=== PATIENT | female | born 1995 | race Caucasian/White ===

== ENCOUNTER 2020-12-18 19:14 | Inpatient (IN) | payer OTHER ==
[~2020-12-18] VITALS: Ht 167.6 cm; Wt 154.8 kg
[~2020-12-18 19:14] MED LIST: ACETAMINOPHEN500 M1 PO; COUMADIN10 MG PO; COUMADIN7.5 MG PO; GABAPENTIN300 MG PO; GABAPENTIN600 MG PO; MEDROL 4MG DOSEP4 MG PO; NORCO 5-325 TA1 EAC1 PO; NORCO 5-325 TA1 EACH PO; NORCO 5/3251 EACH PO; PAROXETINE 20MG20 MG PO; PREDNISONE 20MG20 MG PO
[2020-12-18 20:17] LABS: BILIRUBIN NEGATIVE (NEGATIVE); BLOOD NEGATIVE Ery/uL (NEGATIVE); CLARITY CLEAR (CLEAR); COLOR YELLOW (YELLOW); GLUCOSE (U) NORMAL (NORMAL); LEUKOCYTES NEGATIVE Leu/uL (NEGATIVE); NITRITE NEGATIVE (NEGATIVE); PROTEIN NEGATIVE (NEGATIVE); SPECIFIC GRAVITY >=1.030 (1.001-1.030); UROBILINOGEN 0.2 mg/dL (0.2-1.0)
[2020-12-18 20:40] LABS: BASOPHIL 0.4 % (0-2); EOSINOPHIL 1.9 % (0-5); HCT 46.7 % (37.0-47.0); HGB 15.2 g/dl (12.5-16.0); LYMPHOCYTE 15.2 % (15-48); MCH 28.6 pg (25.0-31.0); MCHC 32.5 g/dL (32.0-36.0); MCV 87.9 fL (78.0-100.0); MONOCYTE 4.3 % (0-12); MPV 9.1 fL (6.0-9.5); NEUTROPHIL 77.9 % (41-80); NRBC 0; PLT 371 K/uL (150-400); RBC 5.31 M/uL (4.20-5.40); WBC 16.6 K/uL (4.0-10.5)
[2020-12-18 20:51] LABS: INR 1.71 (0.9-1.2); PROTHROMBIN TIME 19.3 SECONDS (11.8-13.4)
[2020-12-18 20:59] LABS: ALBUMIN 3.8 g/dL (3.4-5.0); BILIRUBIN - TOTAL 0.4 mg/dL (0.2-1.0); BUN/CREAT RATIO (CALC) 14.8 RATIO; CREATININE 0.81 mg/dL (0.51-0.95); GLOBULIN (CALCULATION) 4.6 g/dL; POTASSIUM 4.5 mmol/L (3.5-5.1); TOTAL PROTEIN 8.4 g/dL (6.4-8.2)
[2020-12-18 22:19] LABS: LACTIC ACID 1.1 mmol/L (0.4-1.9)
[2020-12-19] MEDS ORDERED: WARFARIN SODIUM5 MG PO (01:07)
[2020-12-19] MEDS ORDERED: CYMBALTA 30MG C30 MG PO (01:07)
[2020-12-19 05:58] LABS: BASOPHIL 0.5 % (0-2); HCT 40.5 % (37.0-47.0); HGB 13.1 g/dl (12.5-16.0); LYMPHOCYTE 30.6 % (15-48); MCH 28.4 pg (25.0-31.0); MCHC 32.3 g/dL (32.0-36.0); MCV 87.9 fL (78.0-100.0); MONOCYTE 5.9 % (0-12); MPV 9.2 fL (6.0-9.5); NEUTROPHIL 59.7 % (41-80); NRBC 0; PLT 300 K/uL (150-400); RBC 4.61 M/uL (4.20-5.40); RDW 13.1 % (11.5-14.0); WBC 10.1 K/uL (4.0-10.5)
[2020-12-19 06:06] LABS: INR 1.85 (0.9-1.2); PROTHROMBIN TIME 20.5 SECONDS (11.8-13.4)
[2020-12-19 06:16] LABS: ALBUMIN 3.1 g/dL (3.4-5.0); BILIRUBIN - TOTAL 0.5 mg/dL (0.2-1.0); BUN/CREAT RATIO (CALC) 11.8 RATIO; CREATININE 0.85 mg/dL (0.51-0.95); POTASSIUM 3.8 mmol/L (3.5-5.1); TOTAL PROTEIN 7.1 g/dL (6.4-8.2)
--- NOTE | 2020-12-19 08:00 | NUR ---
NOTIFIED OF INR THIS AM. WILL NOTIFY MD RAO WELL PRIOR TO SURGERY
[2020-12-19 09:19] LABS: INR 2.03 (0.9-1.2); PROTHROMBIN TIME 22.1 SECONDS (11.8-13.4)
[2020-12-19 18:35] LABS: INR 1.93 (0.9-1.2); PROTHROMBIN TIME 21.2 SECONDS (11.8-13.4)
[2020-12-20 07:35] LABS: BASOPHIL 0.4 % (0-2); EOSINOPHIL 5.1 % (0-5); HCT 38.1 % (37.0-47.0); HGB 12.2 g/dl (12.5-16.0); LYMPHOCYTE 38.2 % (15-48); MCH 28.6 pg (25.0-31.0); MCV 89.4 fL (78.0-100.0); MONOCYTE 5.9 % (0-12); MPV 9.2 fL (6.0-9.5); NEUTROPHIL 50.3 % (41-80); NRBC 0; PLT 279 K/uL (150-400); RBC 4.26 M/uL (4.20-5.40); RDW 13.1 % (11.5-14.0); WBC 6.7 K/uL (4.0-10.5)
[2020-12-20 07:38] LABS: INR 1.7 (0.9-1.2); PROTHROMBIN TIME 19.2 SECONDS (11.8-13.4)
[2020-12-20 07:53] LABS: BUN/CREAT RATIO (CALC) 7.2 RATIO; CREATININE 0.83 mg/dL (0.51-0.95)
[2020-12-20 13:05] LABS: HCG (URINE) SCREEN NEGATIVE (NEGATIVE)
[2020-12-21 09:51] LABS: BASOPHIL 0.2 % (0-2); EOSINOPHIL 0.1 % (0-5); HCT 39.1 % (37.0-47.0); HGB 12.6 g/dl (12.5-16.0); LYMPHOCYTE 19.9 % (15-48); MCH 28.7 pg (25.0-31.0); MCHC 32.2 g/dL (32.0-36.0); MCV 89.1 fL (78.0-100.0); MONOCYTE 5.3 % (0-12); MPV 9.7 fL (6.0-9.5); NEUTROPHIL 74.2 % (41-80); NRBC 0; PLT 312 K/uL (150-400); RBC 4.39 M/uL (4.20-5.40); RDW 12.7 % (11.5-14.0); WBC 10.3 K/uL (4.0-10.5)
[2020-12-21 10:11] LABS: INR 1.36 (0.9-1.2); PROTHROMBIN TIME 16.1 SECONDS (11.8-13.4)
[2020-12-21 10:16] LABS: BUN/CREAT RATIO (CALC) 6.2 RATIO; CREATININE 0.8 mg/dL (0.51-0.95); POTASSIUM 3.8 mmol/L (3.5-5.1)
[2020-12-21] MEDS ORDERED: LOVENOX150 MG/1 M SC (14:17)
[2020-12-21] MEDS ORDERED: AUGMENTIN 875-1 EACH PO (14:17)
[2020-12-21] MEDS ORDERED: PERCOCET 5-3251 EACH PO (14:45)
== END 2020-12-21 16:14 | disposition home or self-care (01) | DRG 853 ==
LOC: FER 19:14 → FMS 23:20
PROVIDERS: Allergy & Immunology Allergy; Anesthesiology; Emergency Medicine; Nurse Practitioner; Surgery; ADMIT Internal Medicine
PROC: 0DTJ4ZZ Resection of Appendix, Percutaneous Endoscopic Approach (ICD-10-PCS; principal; 2020-12-20 12:45)
DX: A41.9 Sepsis, unspecified organism (principal); K35.33 Acute appendicitis with perforation, localized peritonitis, and gangrene, with abscess; Z68.43 Body mass index [BMI] 50.0-59.9, adult; J45.909 Unspecified asthma, uncomplicated; K58.9 Irritable bowel syndrome, unspecified; F31.9 Bipolar disorder, unspecified; Z20.822 Contact with and (suspected) exposure to COVID-19; F17.200 Nicotine dependence, unspecified, uncomplicated; G89.29 Other chronic pain; E66.01 Morbid (severe) obesity due to excess calories; Z86.718 Personal history of other venous thrombosis and embolism; Z86.711 Personal history of pulmonary embolism; Z90.49 Acquired absence of other specified parts of digestive tract; Z98.51 Tubal ligation status; Z98.890 Other specified postprocedural states; Z79.01 Long term (current) use of anticoagulants; Z79.891 Long term (current) use of opiate analgesic; Z79.899 Other long term (current) drug therapy; Z95.820 Peripheral vascular angioplasty status with implants and grafts; Z88.1 Allergy status to other antibiotic agents
CPT/HCPCS: 36415; 80048; 80053; 81003; 83605; 83690; 84703; 85025; 85610; 86850; 86900; 86901; 87040; J1100; J1170; J1650; J2250; J2405; J2543; J2550; J2704; J2710; J3010; J3430; J7030; J7120; Q9967; U0002

== ENCOUNTER 2021-12-27 08:57 | Emergency (ER) | payer OTHER ==
[~2021-12-27 08:57] MED LIST changes: +AUGMENTIN 875-1 EACH PO; +CYMBALTA 30MG C30 MG PO; +LOVENOX150 MG/1 M SC; +PERCOCET 5-3251 EACH PO; +WARFARIN SODIUM5 MG PO
[2021-12-27 11:51] LABS: BILIRUBIN NEGATIVE (NEGATIVE); BLOOD NEGATIVE Ery/uL (NEGATIVE); CLARITY CLEAR (CLEAR); COLOR YELLOW (YELLOW); GLUCOSE (U) NORMAL (NORMAL); LEUKOCYTES 1+ Leu/uL (NEGATIVE); NITRITE NEGATIVE (NEGATIVE); PROTEIN NEGATIVE (NEGATIVE); UROBILINOGEN 0.2 mg/dL (0.2-1.0)
[2021-12-27 12:30] LABS: BASOPHIL 0.6 % (0-2); EOSINOPHIL 3.9 % (0-5); HCT 43.7 % (37.0-47.0); HGB 14.2 g/dl (12.5-16.0); LYMPHOCYTE 26.3 % (15-48); MCHC 32.5 g/dL (32.0-36.0); MCV 89.4 fL (78.0-100.0); MONOCYTE 5.7 % (0-12); MPV 9.8 fL (6.0-9.5); NEUTROPHIL 63.3 % (41-80); NRBC 0; PLT 324 K/uL (150-400); RBC 4.89 M/uL (4.20-5.40); RDW 13.4 % (11.5-14.0); WBC 8.8 K/uL (4.0-10.5)
[2021-12-27 12:35] LABS: INR 1.67 (0.9-1.2); PROTHROMBIN TIME 19.1 SECONDS (11.9-13.9)
[2021-12-27 12:38] LABS: ALBUMIN 3.6 g/dL (3.4-5.0); BILIRUBIN - TOTAL 0.4 mg/dL (0.2-1.0); BUN/CREAT RATIO (CALC) 20.3 RATIO; CREATININE 0.59 mg/dL (0.51-0.95); GLOBULIN (CALCULATION) 3.3 g/dL; POTASSIUM 4.1 mmol/L (3.5-5.1); TOTAL PROTEIN 6.9 g/dL (6.4-8.2)
[2021-12-27 12:59] LABS: URINARY RBC RARE
[2021-12-27 13:00] LABS: BACTERIA TRACE
[2021-12-27] MEDS ORDERED: NORCO 5-325 TA1 EACH PO (14:02)
== END 2021-12-27 14:17 | disposition home or self-care (01) ==
LOC: FER 08:57
PROVIDERS: Emergency Medicine
DX: M54.6 Pain in thoracic spine (principal); R79.1 Abnormal coagulation profile; F17.200 Nicotine dependence, unspecified, uncomplicated; Z86.718 Personal history of other venous thrombosis and embolism; Z79.01 Long term (current) use of anticoagulants; Z88.1 Allergy status to other antibiotic agents
CPT/HCPCS: 36415; 72128; 80053; 81001; 85025; 85610; 85730; 93005; J1170